=== PATIENT | male | born 1975 | race Caucasian/White ===

== ENCOUNTER → 2024-09-10 07:47 | Outpatient (BNVA) | payer OTHER, SELFPAY | PROVIDERS: Family Provider Family Medicine; PCP Family Medicine; Visit Provider Family Medicine | DX: Z00.00 Encounter for general adult medical examination without abnormal findings (principal); R53.83 Other fatigue; Z20.2 Contact with and (suspected) exposure to infections with a predominantly sexual mode of transmission | CPT/HCPCS: 80053; 80061; 80074; 82607; 84403; 84443; 85025; 86695; 86696; 87491; 87591; 87806 ==